=== PATIENT | female | born 1960 | race Caucasian/White ===

== ENCOUNTER 2021-11-02 21:48 | Emergency (ER) | payer OTHER ==
[~2021-11-02] VITALS: Ht 167.6 cm; Wt 77.1 kg
[2021-11-02 21:51] VITALS: BP 150/71
--- NOTE | 2021-11-02 21:51 | NUR ---
PT BIBA BLS TAKEN TO BED 3
--- NOTE | 2021-11-02 22:10 | NUR ---
61 Y/O FEMALE BIBA FROM HOME, C/O BACK PAIN x1 WEEK. NO FALL OR INJURY. SEEN AT PCP x1 WEEK AGO AND GOT XRAY- NOT RESULTED YET. PT STATES 10/10 PAIN. UNABLE TO AMBULATE DUE TO PAIN. TURKISH SPEAKING. NO REDNESS, BRUISING, OR OBVIOUS DEFORMITIES. A/OX4, UNLABORED BREATHING. MEDHX- HTN NKA
--- NOTE | 2021-11-02 22:44 | NUR ---
ER MD AT BEDSIDE EXAMINING PT
[2021-11-02] MEDS: CYCLOBENZAPRINE 10 MG TAB PO ONE (23:41)
[2021-11-02] MEDS: KETOROLAC 60 MG/2 ML VIAL IM ONE (23:42)
--- NOTE | 2021-11-02 23:43 | NUR ---
PT TAKEN TO RADIOLOGY
--- NOTE | 2021-11-02 23:59 | NUR ---
PT RETURNED FROM XRAY
[2021-11-03] MEDS ORDERED: KETO10TA2 PO (01:06)
[2021-11-03] MEDS ORDERED: CYCL-711 PO (01:06)
[2021-11-03] MEDS ORDERED: GABA-636 PO (01:07)
--- NOTE | 2021-11-03 01:32 | NUR ---
PATEINT RESTING IN BED. BED LOW AND LOCKED. AMY SIDE RAIL UP FOR SAFETY. FAMILY AT BEDSIDE. ALL NEEDS MET.
[2021-11-03 01:38] VITALS: BP 138/66
--- NOTE | 2021-11-03 01:38 | NUR ---
Patient discharged with v/s stable. Written and verbal after care instructions given ON [facility] and explained. Patient alert, oriented and verbalized understanding of instructions. Ambulatory with steady gait. All questions addressed prior to discharge. ID band removed. Patient advised to follow up with PMD. Rx of FLEXERIL, GABAPENTIN, KETOROLAC given.
== END 2021-11-03 01:38 | disposition home or self-care (01) ==
LOC: MED 21:48
DX: M54.50 Low back pain, unspecified (principal); I10 Essential (primary) hypertension; Z98.890 Other specified postprocedural states; Z79.899 Other long term (current) drug therapy; Z79.1 Long term (current) use of non-steroidal anti-inflammatories (NSAID)
CPT/HCPCS: 72110; 96372; 99283; J1885